=== PATIENT | female | born 1935 | race Hispanic/Latino ===

== ENCOUNTER 2018-02-24 11:00 | Outpatient (RCR) | payer MEDICARE ==
[~2018-02-24 11:00] MED LIST: AMLODIPINE BESYL5 MG PO; BACTRIM DS1 EA; FLUOXETINE HCL10 M1 PO; FUROSEMIDE20 MG PO; LOSARTAN-HCTZ1 EAC2 PO; OMEPRAZOLE40 MG PO; POTASSIUM CHLO10 ME1 PO; URSO FORTE500 M1; URSODIOL500 MG PO; Z.0.CELEXA10 MG; Z.0.COZAAR100 MG; Z.0.LISINOPRIL20 MG; Z.0.METOPROLOL SUCC5
== END 2018-03-17 ==
LOC: PT 11:00
PROVIDERS: ATTEND Family Medicine
DX: R53.1 Weakness (principal)
CPT/HCPCS: 97110; 97162; G8978; G8979

== ENCOUNTER 2018-04-06 20:48 | Emergency (ER) | payer MEDICARE ==
[~2018-04-06] VITALS: Ht 165.1 cm; Wt 53.5 kg
== END 2018-04-06 22:05 | disposition home or self-care (01) ==
LOC: FSED 20:48
DX: S51.801A Unspecified open wound of right forearm, initial encounter (principal); W18.39XA Other fall on same level, initial encounter; Y92.008 Other place in unspecified non-institutional (private) residence as the place of occurrence of the external cause
CPT/HCPCS: 99283

== ENCOUNTER 2018-10-02 03:52 | Emergency (ER) | payer MEDICARE, OTHER ==
[~2018-10-02] VITALS: Ht 165.1 cm; Wt 53.5 kg
--- NOTE | 2018-10-02 04:59 | Diagnostic Imaging Report ---
EXAMINATION: Lumbar spine series. CLINICAL HISTORY: Status post fall, back and buttock pain COMPARISON: CT abdomen and pelvis 01/28/2010 DISCUSSION: Exam is markedly limited by presence of moderate stool which obscures the bony structures as well as generalized osteopenia. 2 views of the lumbar spine are submitted for interpretation. Five nonrib-bearing lumbar type vertebral bodies are identified. No definite acute, displaced fracture or dislocation. No significant spondylolisthesis. Moderate to marked multilevel degenerative disc changes in the lumbosacral spine, with associated levoscoliosis, with apex centered at L2-L3, which is grossly unchanged since prior CT. Visualized vertebral bodies heights are preserved . Sacroiliac joints are obscured. Atherosclerotic calcification of the abdominal aorta IMPRESSION: 1. No definite acute, displaced fracture or dislocation , however, this is a limited exam due to retained stool which obscures the bony structures and generalized osteopenia. CT lumbar spine is recommended if there is history of trauma and clinical concern for occult fractures. The staff physician below has personally reviewed this exam on the date of dictation. Signed by: Dr. Augusto Cardenas M.D. on 10/02/2018 4:56 AM
--- NOTE | 2018-10-02 05:02 | Diagnostic Imaging Report ---
Exam: Sacrum and coccyx, 2-3 views History: Status post fall Comparison: CT abdomen and pelvis 01/28/2010 Findings: There is markedly decreased bone mineralization, which limits evaluation of bony structures. Retained stool in the colon obscures the bony structures. The sacrum is not visualized on the frontal views.. Visualized portions of the sacrum on the lateral view show no acute, displaced fracture or dislocation within the limitations of the study. Visualized portions of the pelvis and hips show no acute bony abnormality. Impression: 1. Markedly limited study as the sacrum is not visualized on the frontal views. Visualized portions in the lateral view show no acute, displaced fracture or dislocation. Signed by: Dr. Augusto Cardenas M.D. on 10/02/2018 4:59 AM
== END 2018-10-02 05:20 | disposition home or self-care (01) ==
LOC: FSED 03:52
DX: S30.0XXA Contusion of lower back and pelvis, initial encounter (principal); W18.30XA Fall on same level, unspecified, initial encounter; Y92.008 Other place in unspecified non-institutional (private) residence as the place of occurrence of the external cause; K76.9 Liver disease, unspecified
CPT/HCPCS: 72100; 72220; 99283